=== PATIENT | female | born 1985 | race Two or more races ===

== ENCOUNTER 2018-12-02 09:23 | Emergency (ER) | payer MEDICAID ==
[~2018-12-02] VITALS: Ht 160 cm; Wt 55.3 kg
--- NOTE | 2018-12-02 09:40 | NUR ---
CAME IN FOR ABD PAIN x 3 DAYS, WORST TODAY, ALSO C/O BACK PAIN AND NAUSEA. TO ER BED 2, HOOKED TO MONITOR, AWAITING MD LOAIZA.
--- NOTE | 2018-12-02 09:42 | NUR ---
DR MAN AT BEDSIDE FOR EVAL
--- NOTE | 2018-12-02 09:46 | NUR ---
URINE SAMPLE SENT TO LAB
[2018-12-02] MEDS ORDERED: CEFTRIAXONE 1 G VIAL IM ONE (10:00)
[2018-12-02] MEDS ORDERED: CEFTRIAXONE 1 G VIAL ONE (10:01)
[2018-12-02] MEDS ORDERED: LIDOCAINE /MPF 1% VIAL 5 ML VIAL ONE (10:01)
--- NOTE | 2018-12-02 10:35 | NUR ---
Patient discharged to home in stable condition. Written and verbal after care instructions given. Patient verbalizes understanding of instruction.
[2018-12-02 10:37] VITALS: BP 111/78
== END 2018-12-02 10:37 | disposition home or self-care (01) ==
LOC: ER 09:32
DX: N39.0 Urinary tract infection, site not specified (principal)
CPT/HCPCS: 84703; 87086; 96372; 99283; J0696; J3490; 87186-TC

== ENCOUNTER 2019-02-22 12:10 | Emergency (ER) | payer MEDICAID ==
[~2019-02-22] VITALS: Ht 160 cm; Wt 51.7 kg
--- NOTE | 2019-02-22 12:40 | NUR ---
PT BIBSELF FOR N/V/D X 4 DAYS, PT AAOX4, -SOB, NAD NOTED, VSS, PENDING MD LOAIZA
--- NOTE | 2019-02-22 13:22 | NUR ---
TO ER BED 6, NO APPARENT CHANGE IN CONDITION
[2019-02-22 13:55] LABS: APPEARANCE,URINE Slightly Cloudy (CLEAR); BILIRUBIN,URINE Negative (NEGATIVE); BLOOD, URINE Trace-intact Ery/uL (NEGATIVE); COLOR,URINE Yellow (YELLOW); KETONES,URINE Negative (NEGATIVE); LEUKOCYTE ESTERASE ,URINE Negative (NEGATIVE); NITRITE, URINE Negative (NEGATIVE); PROTEIN,URINE Negative (NEGATIVE); UGLUCOSE Negative (NEGATIVE); UROBILINOGEN,URINE 0.2 EU/dL (0.2)
[2019-02-22] MEDS ORDERED: ONDANSETRON HCL/PF 4 MG/2 ML VIAL ONE (13:55)
[2019-02-22 13:57] LABS: WBC,URINE 0-2 /HPF (0-3)
[2019-02-22 13:58] LABS: BACTERIA,URINE Rare /HPF (None Seen); SQUAMOUS EPITHELIAL CELL,UR Rare /HPF (None Seen)
[2019-02-22] MEDS ORDERED: ONDANSETRON HCL/PF 4 MG/2 ML VIAL IVP ONE (14:00)
[2019-02-22] MEDS ORDERED: IV NS 0.9% 1,000 ML BAG IV ONE (14:00)
[2019-02-22 14:02] LABS: BASOPHILS % (AUTO) 0.7 % (0.0-2.0); EOSINOPHILS % (AUTO) 1.8 % (0.0-6.0); HEMATOCRIT 42 % (33-45); HEMOGLOBIN 13.9 g/dL (11.5-14.8); LYMPHOCYTES # (AUTO) 1.3 /CMM (0.8-4.8); LYMPHOCYTES % (AUTO) 37.1 % (20.0-44.0); MEAN CORPUSCULAR HGB CONC 34 g/dl (31.0-36.0); MEAN CORPUSCULAR VOLUME 92 fL (82-100); MONOCYTES # (AUTO) 0.7 /CMM (0.1-1.30); NEUTROPHILS # (AUTO) 1.4 /CMM (1.8-8.9); NEUTROPHILS % (AUTO) 40.4 % (43.0-81.0); PLATELET COUNT (AUTO) 236 /CMM (150-450); WHITE BLOOD COUNT (AUTO) 3.4 K/uL (4.3-11.0)
[2019-02-22 14:14] LABS: CALCIUM, SERUM 8.5 mg/dL (8.5-10.1); CREATININE 0.7 mg/dL (0.6-1.3); POTASSIUM 3.8 mmol/L (3.5-5.1)
[2019-02-22 14:19] LABS: ALBUMIN 3.4 g/dL (3.4-5.0); BILIRUBIN,DIRECT 0.1 mg/dL (0.0-0.2); BILIRUBIN,TOTAL 0.3 mg/dL (0.2-1.0); TOTAL PROTEIN, SERUM 7.2 g/dL (6.4-8.2)
--- NOTE | 2019-02-22 15:07 | NUR ---
Patient discharged to home in stable condition. Written and verbal after care instructions given. Patient verbalizes understanding of instruction. IV removed. Catheter intact and site benign. Pressure and 4x4 applied to site. No bleeding noted.
[2019-02-22 15:41] VITALS: BP 100/65
[2019-02-22 18:49] LABS: EOSINOPHILS % (MANUAL) 1 % (0-4); LYMPHOCYTES % (MANUAL) 37 % (16-48); MONOCYTES % (MANUAL) 17 % (0-11.0); NEUTROPHILS % (MANUAL) 45 (42-76)
== END 2019-02-22 15:42 | disposition home or self-care (01) ==
LOC: ER 12:13
DX: K52.9 Noninfective gastroenteritis and colitis, unspecified (principal)
CPT/HCPCS: 36415; 80048; 80076; 81001; 83690; 84703; 85025; 87086; 96361; 96374; 99283; J2405; J7030; 81000-TC